=== PATIENT | female | born 1960 | race Caucasian/White ===

== ENCOUNTER → 2025-06-02 | Outpatient (CLI) | payer BC, SELFPAY ==
--- NOTE | 2025-06-02 13:00 | XR_ITS ---
Examination: Ultrasound-guided paracentesis Abdominal sonogram limited Date and time of exam: June 02, 2025 1407 hours INDICATIONS: Cirrhosis, increasing ascites and abdominal distention this week Informed consent provided. A timeout was completed verifying correct patient, procedure, site, positioning, and special adequate movement if applicable. Technique: Multiple sonographic images of the abdomen have been obtained. Appropriate area for paracentesis was marked. Local anesthesia is obtained with 1% lidocaine. Yueh catheter is successfully introduced. Findings: Abdominal sonographic images demonstrate sufficient ascitic fluid for paracentesis. After placing the Yueh catheter, 4000 cc of fluid were successfully removed. During and after completion of the procedure the patient appear in satisfactory and stable condition with no complications observed. Estimated blood loss 0 cc Impression: Abdominal ascites Successful ultrasound-guided paracentesis as described above
[2025-06-02 13:21] LABS: INR 1.2 (0.9-1.3); Partial Thromboplastin Time 26.9 Seconds (22.0-36.0); Prothrombin Time 12.8 Seconds (9.0-12.2)
== END | disposition home or self-care (01) ==
PROVIDERS: PCP Family Medicine; Referring Provider Family Medicine; Visit Provider Family Medicine
DX: K70.31 Alcoholic cirrhosis of liver with ascites (principal)
CPT/HCPCS: 49083; 36415; 85610; 85730

== ENCOUNTER → 2025-07-15 | Outpatient (CLI) | payer BC, SELFPAY ==
--- NOTE | 2025-07-15 10:38 | XR_ITS ---
Examination: Ultrasound-guided paracentesis Abdominal sonogram limited Date and time of exam: July 15, 2025, 1115 hours INDICATIONS: Cirrhosis, increasing ascites abdominal distention history Informed consent provided. A timeout was completed verifying correct patient, procedure, site, positioning, and special adequate movement if applicable. Technique: Multiple sonographic images of the abdomen have been obtained. Appropriate area for paracentesis was marked. Local anesthesia is obtained with 1% lidocaine. Yueh catheter is successfully introduced. Findings: Abdominal sonographic images demonstrate sufficient ascitic fluid for paracentesis. After placing the Yueh catheter, 6450 cc of fluid were successfully removed. During and after completion of the procedure the patient appear in satisfactory and stable condition with no complications observed. Estimated blood loss 0 cc Impression: Abdominal ascites Successful ultrasound-guided paracentesis as described above
[2025-07-15] MEDS: ALBUMIN HUMAN-KJDA 25% IVPB 25 GM/100 ML BTL IV (12:10)
--- NOTE | 2025-07-15 13:10 | PC.NURSE ---
late entry: patient came in to cardiac cath tech post US paracenthesis, 1 bottle albumin infusion ordered by Dr. del real and started by Jose MCRAE, albumin infusion ended, IV removed, patient discharged home
== END | disposition home or self-care (01) ==
PROVIDERS: Referring Provider Family Medicine; Visit Provider Radiology Diagnostic Radiology
DX: K70.31 Alcoholic cirrhosis of liver with ascites (principal)
CPT/HCPCS: 49083; C1729; P9047

== ENCOUNTER → 2025-08-12 | Outpatient (CLI) | payer BC, SELFPAY ==
--- NOTE | 2025-08-12 12:33 | XR_ITS ---
Examination: Ultrasound-guided paracentesis Abdominal sonogram limited Date and time of exam: August 12, 2025, 1223 hours INDICATION: Cirrhosis, increasing ascites abdominal distention this week Informed consent provided. A timeout was completed verifying correct patient, procedure, site, positioning, and special adequate movement if applicable. Technique: Multiple sonographic images of the abdomen have been obtained. Appropriate area for paracentesis was marked. Local anesthesia is obtained with 1% lidocaine. Yueh catheter is successfully introduced. Findings: Abdominal sonographic images demonstrate sufficient ascitic fluid for paracentesis. After placing the Yueh catheter, 3000 cc of fluid were successfully removed. During and after completion of the procedure the patient appear in satisfactory and stable condition with no complications observed. Estimated blood loss 0 cc Impression: Abdominal ascites Successful ultrasound-guided paracentesis as described above
== END | disposition home or self-care (01) ==
PROVIDERS: PCP Family Medicine; Referring Provider Family Medicine; Visit Provider Family Medicine
DX: K70.31 Alcoholic cirrhosis of liver with ascites (principal)
CPT/HCPCS: 49083; C1729

== ENCOUNTER → 2025-09-09 | Outpatient (CLI) | payer BC, SELFPAY ==
[2025-09-09 12:19] LABS: Basophils # (Auto) 0.1 Thou/mm3 (0.0-0.2); Basophils % (Auto) 1 % (0-2.5); Eosinophils # (Auto) 0.1 Thou/mm3 (0.0-0.5); Eosinophils % (Auto) 2 % (0-10); Hematocrit 31.1 % (36.0-46.0); Hemoglobin 9.0 g/dL (12.0-16.0); Immature Granulocytes Auto 0.03 Thou/mm3 (0.00-0.00); Lymphocytes # (Auto) 0.5 Thou/mm3 (1.0-4.8); Lymphocytes % (Auto) 8 % (10-50); Mean Corpuscular HGB Conc 28.9 g/dl (31.0-37.0); Mean Corpuscular Hemoglobin 18.7 pg (25.0-35.0); Mean Corpuscular Volume 65 fL (80-100); Monocytes # (Auto) 0.9 Thou/mm3 (0.0-0.8); Monocytes % (Auto) 12 % (0-12); Neutrophils # (Auto) 5.4 Thou/mm3 (1.8-7.7); Neutrophils % (Auto) 78 % (37-80); Nucleated Red Blood Cell # 0.00 Thou/mm3 (0.00-0.00); Nucleated Red Blood Cell % 0 /100 WBC (0); Platelet Count 164 Thou/mm3 (140-440); RDW Standard Deviation 61.6 fL (36.4-46.3); Red Blood Count 4.81 Miln/mm3 (4.00-5.20); White Blood Count 7.0 Thou/mm3 (3.6-11.0)
--- NOTE | 2025-09-09 12:25 | XR_ITS ---
Examination: Ultrasound-guided paracentesis Abdominal sonogram limited Date and time of exam: September 09, 2025, 1337 hours INDICATIONS: Alcoholic cirrhosis, increasing in size abdominal distention this week Informed consent provided. A timeout was completed verifying correct patient, procedure, site, positioning, and special adequate movement if applicable. Technique: Multiple sonographic images of the abdomen have been obtained. Appropriate area for paracentesis was marked. Local anesthesia is obtained with 1% lidocaine. Yueh catheter is successfully introduced. Findings: Abdominal sonographic images demonstrate sufficient ascitic fluid for paracentesis. After placing the Yueh catheter, 7300 cc of fluid were successfully removed. During and after completion of the procedure the patient appear in satisfactory and stable condition with no complications observed. Estimated blood loss 0 cc Impression: Abdominal ascites Successful ultrasound-guided paracentesis as described above
[2025-09-09 13:34] LABS: INR 1.1 (0.9-1.3); Partial Thromboplastin Time 28.2 Seconds (22.0-36.0); Prothrombin Time 11.9 Seconds (9.0-12.2)
[2025-09-09 15:29] LABS: Path Review Blood Smear Sent to Pathologist
== END | disposition home or self-care (01) ==
PROVIDERS: PCP Family Medicine; Referring Provider Family Medicine; Visit Provider Family Medicine
DX: K70.31 Alcoholic cirrhosis of liver with ascites (principal)
CPT/HCPCS: 49083; 36415; 85025; 85610; 85730; C1729